=== PATIENT | female | born 1995 | race African-American/Black ===

== ENCOUNTER 2016-11-12 19:26 | Inpatient (IN) | payer MEDICAID ==
[~2016-11-12] VITALS: Ht 170.2 cm; Wt 58.5 kg
[~2016-11-12 19:26] MED LIST: FOLITAB45 OR; IRONTAB35 OR; LEVO750T3 PO
[2016-11-12] MEDS ORDERED: IBUPROFEN 600 MG TAB PO ONE ×2 (19:52→20:00)
[2016-11-12] MEDS ORDERED: HYDROmorphone HCL 2 MG/ML VL IV ONE (20:15)
[2016-11-12] MEDS ORDERED: FOLIC ACID 1 MG in D5W 5% 50 ML IV ONE (20:15)
[2016-11-12] MEDS ORDERED: ONDANSETRON HCL 4 MG/2 ML VIAL IV ONE (20:15)
[2016-11-12] MEDS ORDERED: SODIUM CHLORIDE 0.9% 2,000 ML IV ONE (20:15)
[2016-11-12 20:47] LABS: DEFINITIVE VIEW TRANSMISSION; Hematocrit 15.4 % (36.0-46.0); Mean Corpuscular Hemoglobin 40.3 pg (28.0-32.0); Mean Corpuscular Hgb Conc. 35.5 g/dL (32.0-36.0); Mean Corpuscular Volume 113.6 fL (80.0-100.0); Mean Platelet Volume 8.4 fL (7.4-10.4); Platelet Count (auto) 340 10^3/uL (140-450); Red Cell Distribution Width 17.3 % (11.6-16.0); SUSPECT VIEW TRANSMISSION
[2016-11-12 21:17] LABS: Hemoglobin 5.4 g/dL (12.2-16.2); White Blood Cell 46.9 10^3/uL (4.4-10.8)
[2016-11-12 21:22] LABS: Metamyelocytes % 0; Myelocytes % 0; Promyelocytes % 0; Reactive Lymphocytes 0
[2016-11-12] MEDS ORDERED: SODIUM CHLORIDE 0.9% 1,000 ML IV ONE ×2 (21:30→21:45)
[2016-11-12] MEDS ORDERED: VANCOMYCIN 1GM/250ML D5W 250 ML IV ONE ×2 (21:30→21:37)
[2016-11-12 21:33] LABS: Large Platelets FEW; Platelet Estimate Adequate
[2016-11-12 21:34] LABS: Albumin 3.4 g/dL (3.4-5.0); Calcium 8.1 mg/dL (8.5-10.1); Potassium 3.5 mmol/L (3.5-5.1)
[2016-11-12 21:35] LABS: Giant Platelets Few
[2016-11-12 21:36] LABS: BUN/Creatinine Ratio 31.6
[2016-11-12 21:38] LABS: Bilirubin, Total 3.4 mg/dL (0.2-1.0); Total Protein 7.2 g/dL (6.4-8.2); Toxic Granulation Slight
[2016-11-12 21:42] LABS: Urine Bilirubin Negative (Negative); Urine Blood TRACE /uL (Negative); Urine Color Yellow (Yellow); Urine Glucose Normal (Normal); Urine Ketone Negative (Negative); Urine Nitrite Negative (Negative); Urine RBC 2 /hpf (0 - 4); Urine Urobilinogen Normal (Negative)
[2016-11-12 21:44] LABS: Macrocytosis Marked
[2016-11-12 21:45] LABS: Lactic Acid w/Reflex 2.4 mmol/L (0.4-2.0)
[2016-11-12] MEDS ORDERED: cefTRIAXone 1GM/50ML D5W 50 ML IV ONE (21:45)
[2016-11-12 21:52] LABS: Platelet Clumps FEW
[2016-11-12 21:54] LABS: Sickle Cells MODERATE
[2016-11-12 21:55] LABS: REFLEX LACTIC ACID YES OR NO YES
[2016-11-12 21:56] LABS: Burr Cells FEW
[2016-11-12] MEDS: NOREPINEPHRINE BITARTRATE 250 ML IV SCH (22:03)
[2016-11-13] VITALS (81 sets, daily range): BP systolic 76–124; BP diastolic 29–74
[2016-11-13 00:16] LABS: Urine Bilirubin Negative (Negative); Urine Blood Negative /uL (Negative); Urine Color Yellow (Yellow); Urine Glucose Normal (Normal); Urine Ketone Negative (Negative); Urine Nitrite Negative (Negative); Urine RBC 1 /hpf (0 - 4); Urine Squamous Epithelial Cell FEW /hpf (<5); Urine Urobilinogen Normal (Negative)
[2016-11-13] MEDS ORDERED: NITROGLYCERIN 0.4 MG SL TAB SL PRN (02:15)
[2016-11-13] MEDS ORDERED: TEMAZEPAM 15 MG CAP PO PRN (02:15)
[2016-11-13] MEDS ORDERED: ONDANSETRON HCL 4 MG/2 ML VIAL IV PRN (02:15)
[2016-11-13] MEDS ORDERED: MORPHINE SULF INJ 2 MG/ML SYRINGE 1ML IV PRN (02:15)
[2016-11-13] MEDS: PIPERACILLIN-TAZOB 2.25GM 50 ML IV SCH ×4 (02:40→18:00)
[2016-11-13] MEDS: SODIUM CHLORIDE 0.9% 1,000 ML IV SCH ×3 (02:40→06:21)
[2016-11-13] MEDS: HYDROmorphone HCL 2 MG/ML VL IV PRN ×3 (03:26→18:14)
[2016-11-13] MEDS: NOREPINEPHRINE BITARTRATE 250 ML IV SCH (06:19)
[2016-11-13] MEDS: ACETAMINOPHEN 325 MG TAB PO PRN ×3 (06:20→21:44)
[2016-11-13] MEDS: ENOXAPARIN SOD 30 MG/0.3 ML SYRINGE SC SCH (09:41)
[2016-11-13] MEDS: FOLIC ACID 1 MG TAB PO SCH (09:41)
[2016-11-13] MEDS: FAMOTIDINE 20 MG TAB PO SCH ×2 (09:41→21:48)
[2016-11-13] MEDS ORDERED: VANCOMYCIN PER PHARMACY 0 MG IV SCH (10:00)
[2016-11-13] MEDS ORDERED: NITROGLYCERIN 2% OINT 1GM PKG TD ONE (10:45)
[2016-11-13 12:17] LABS: DEFINITIVE VIEW TRANSMISSION; Hematocrit 15.8 % (36.0-46.0); Mean Corpuscular Hemoglobin 37.5 pg (28.0-32.0); Mean Corpuscular Volume 104.1 fL (80.0-100.0); Mean Platelet Volume 8.6 fL (7.4-10.4); Platelet Count (auto) 311 10^3/uL (140-450); SUSPECT VIEW TRANSMISSION
[2016-11-13 12:20] LABS: Red Cell Distribution Width 22.4 % (11.6-16.0)
[2016-11-13 12:21] LABS: Hemoglobin 5.7 g/dL (12.2-16.2); White Blood Cell 39.9 10^3/uL (4.4-10.8)
[2016-11-13 12:22] LABS: Metamyelocytes % 0; Myelocytes % 0; Promyelocytes % 0; Reactive Lymphocytes 0
[2016-11-13 12:25] LABS: Albumin 2.9 g/dL (3.4-5.0); BUN/Creatinine Ratio 31.5; Bilirubin, Total 4.7 mg/dL (0.2-1.0); Calcium 8.2 mg/dL (8.5-10.1); Potassium 4.2 mmol/L (3.5-5.1); Total Protein 6.8 g/dL (6.4-8.2)
[2016-11-13 13:53] LABS: Platelet Estimate Adequate
[2016-11-13 13:54] LABS: Anisocytosis Moderate; Giant Platelets Few
[2016-11-13 13:55] LABS: Burr Cells MODERATE; Macrocytosis Moderate; Ovalocytes FEW; Sickle Cells MODERATE
[2016-11-13] MEDS: SODIUM BICARBONATE 50ML VIAL 50 ML in SOD CHL 0.45% WITH 20MEQ KCL 1,000 ML IV SCH ×2 (14:30→17:00)
[2016-11-13 18:15] LABS: DEFINITIVE VIEW TRANSMISSION; Hematocrit 18.4 % (36.0-46.0); Mean Corpuscular Hemoglobin 34.1 pg (28.0-32.0); Mean Corpuscular Hgb Conc. 34.8 g/dL (32.0-36.0); Mean Corpuscular Volume 98.2 fL (80.0-100.0); Mean Platelet Volume 8.6 fL (7.4-10.4); Platelet Count (auto) 311 10^3/uL (140-450); SUSPECT VIEW TRANSMISSION
[2016-11-13 18:20] LABS: Red Cell Distribution Width 24.3 % (11.6-16.0)
[2016-11-13 18:25] LABS: Hemoglobin 6.4 g/dL (12.2-16.2)
[2016-11-13 18:26] LABS: Metamyelocytes % 0; Myelocytes % 0; Promyelocytes % 0; Reactive Lymphocytes 0
[2016-11-13 18:53] LABS: Anisocytosis Moderate; Burr Cells FEW; Ovalocytes FEW; Platelet Estimate Adequate; Sickle Cells MODERATE
[2016-11-13] MEDS ORDERED: VANCOMYCIN 1GM/250ML D5W 250 ML IV SCH (21:00)
[2016-11-13] MEDS: HYDROcodone-ACET 5/325MG TAB PO PRN (21:15)
[2016-11-14] VITALS (87 sets, daily range): BP systolic 80–133; BP diastolic 38–85
[2016-11-14] MEDS: PIPERACILLIN-TAZOB 2.25GM 50 ML IV SCH ×5 (01:26→23:35)
[2016-11-14] MEDS: HYDROmorphone HCL 2 MG/ML VL IV PRN ×2 (02:46→17:26)
[2016-11-14] MEDS: SODIUM BICARBONATE 50ML VIAL 50 ML in SOD CHL 0.45% WITH 20MEQ KCL 1,000 ML IV SCH ×5 (03:30→18:59)
[2016-11-14 04:15] LABS: DEFINITIVE VIEW TRANSMISSION; Hematocrit 25.2 % (36.0-46.0); Hemoglobin 8.5 g/dL (12.2-16.2); Mean Corpuscular Hemoglobin 32.6 pg (28.0-32.0); Mean Corpuscular Hgb Conc. 33.8 g/dL (32.0-36.0); Mean Corpuscular Volume 96.5 fL (80.0-100.0); Mean Platelet Volume 8.7 fL (7.4-10.4); Platelet Count (auto) 313 10^3/uL (140-450); SUSPECT VIEW TRANSMISSION; White Blood Cell 29.6 10^3/uL (4.4-10.8)
[2016-11-14 04:16] LABS: Metamyelocytes % 0; Myelocytes % 0; Promyelocytes % 0; Reactive Lymphocytes 0; Red Cell Distribution Width 21.8 % (11.6-16.0)
[2016-11-14 04:41] LABS: BUN/Creatinine Ratio 18.1; Bilirubin, Total 4.7 mg/dL (0.2-1.0); Calcium 8.8 mg/dL (8.5-10.1); Magnesium 2.1 mg/dL (1.6-2.6); Phosphorus 3.3 mg/dL (2.5-4.90); Potassium 4.6 mmol/L (3.5-5.1); Total Protein 7.1 g/dL (6.4-8.2)
[2016-11-14 05:04] LABS: Anisocytosis Moderate; Ovalocytes FEW; Platelet Estimate Adequate
[2016-11-14 05:06] LABS: Burr Cells FEW; Sickle Cells FEW
[2016-11-14] MEDS: ACETAMINOPHEN 325 MG TAB PO PRN ×2 (05:30→17:26)
[2016-11-14] MEDS: FAMOTIDINE 20 MG TAB PO SCH ×2 (11:10→21:43)
[2016-11-14] MEDS: FOLIC ACID 1 MG TAB PO SCH (11:10)
[2016-11-14] MEDS: ENOXAPARIN SOD 30 MG/0.3 ML SYRINGE SC SCH (11:11)
[2016-11-14] MEDS: HYDROcodone-ACET 5/325MG TAB PO PRN ×2 (11:11→21:44)
[2016-11-14 14:05] LABS: BUN/Creatinine Ratio 13.9; Calcium 8.3 mg/dL (8.5-10.1); Potassium 4.1 mmol/L (3.5-5.1)
[2016-11-14] MEDS: NOREPINEPHRINE BITARTRATE 250 ML IV SCH (21:43)
[2016-11-15] VITALS (37 sets, daily range): BP systolic 90–144; BP diastolic 39–75
[2016-11-15] MEDS: SODIUM BICARBONATE 50ML VIAL 50 ML in SOD CHL 0.45% WITH 20MEQ KCL 1,000 ML IV SCH ×3 (00:30→10:47)
[2016-11-15] MEDS: HYDROmorphone HCL 2 MG/ML VL IV PRN ×2 (02:04→13:04)
[2016-11-15 03:44] LABS: DEFINITIVE VIEW TRANSMISSION; Hematocrit 21.4 % (36.0-46.0); Hemoglobin 7.1 g/dL (12.2-16.2); Mean Corpuscular Hemoglobin 32.1 pg (28.0-32.0); Mean Corpuscular Hgb Conc. 33.4 g/dL (32.0-36.0); Mean Corpuscular Volume 95.9 fL (80.0-100.0); Mean Platelet Volume 8.8 fL (7.4-10.4); Platelet Count (auto) 291 10^3/uL (140-450); SUSPECT VIEW TRANSMISSION; White Blood Cell 20.8 10^3/uL (4.4-10.8)
[2016-11-15 03:59] LABS: Albumin 2.5 g/dL (3.4-5.0); BUN/Creatinine Ratio 11.6; Calcium 8.3 mg/dL (8.5-10.1); Magnesium 1.8 mg/dL (1.6-2.6)
[2016-11-15 04:02] LABS: Bilirubin, Total 2.9 mg/dL (0.2-1.0); Total Protein 6.7 g/dL (6.4-8.2)
[2016-11-15 04:05] LABS: Red Cell Distribution Width 21.5 % (11.6-16.0)
[2016-11-15 04:06] LABS: Metamyelocytes % 0; Myelocytes % 0; Promyelocytes % 0; Reactive Lymphocytes 0
[2016-11-15 04:25] LABS: Hypersegmented Neutrophils Present; Platelet Estimate Adequate
[2016-11-15 04:26] LABS: Anisocytosis Moderate; Ovalocytes FEW
[2016-11-15 04:27] LABS: Sickle Cells FEW
[2016-11-15] MEDS: PIPERACILLIN-TAZOB 2.25GM 50 ML IV SCH ×2 (05:31→11:46)
[2016-11-15] MEDS: ACETAMINOPHEN 325 MG TAB PO PRN ×2 (06:46→22:14)
[2016-11-15] MEDS: FAMOTIDINE 20 MG TAB PO SCH ×2 (09:10→21:33)
[2016-11-15] MEDS: ENOXAPARIN SOD 30 MG/0.3 ML SYRINGE SC SCH (09:10)
[2016-11-15] MEDS: FOLIC ACID 1 MG TAB PO SCH (09:10)
[2016-11-15] MEDS ORDERED: cefTRIAXone 1GM/50ML D5W 50 ML IV ONE (16:00)
[2016-11-15] MEDS: PIPERACILLIN-TAZOB 3.375GM/D5W100ML IV SCH (17:31)
[2016-11-15] MEDS ORDERED: PIPERACILLIN-TAZOB 3.375GM/D5W100ML IV SCH (18:00)
[2016-11-16] VITALS (8 sets, daily range): BP systolic 94–118; BP diastolic 52–73
[2016-11-16] MEDS: PIPERACILLIN-TAZOB 3.375GM/D5W100ML IV SCH ×2 (00:05→06:26)
[2016-11-16 03:42] LABS: Basophils # (auto) 0 uL; Basophils % (auto) 0.3 % (0.0-2.0); DEFINITIVE VIEW TRANSMISSION; Eosinophils # (auto) 0.3 uL; Eosinophils % (auto) 2.2 % (0.0-7.0); Hematocrit 25.4 % (36.0-46.0); Hemoglobin 8.5 g/dL (12.2-16.2); Lymphocytes # (auto) 2.2 uL; Lymphocytes % (auto) 15.3 % (10.0-50.0); Mean Corpuscular Hgb Conc. 33.5 g/dL (32.0-36.0); Mean Corpuscular Volume 95.5 fL (80.0-100.0); Mean Platelet Volume 8.5 fL (7.4-10.4); Monocytes # (auto) 2.1 uL; Monocytes % (auto) 14.6 % (0.0-12.0); Neutrophils # (auto) 9.6 uL; Neutrophils % (auto) 67.6 % (37.0-80.0); Platelet Count (auto) 338 10^3/uL (140-450); White Blood Cell 14.1 10^3/uL (4.4-10.8)
[2016-11-16 03:52] LABS: Red Cell Distribution Width 20.3 % (11.6-16.0)
[2016-11-16 04:16] LABS: Albumin 2.6 g/dL (3.4-5.0); BUN/Creatinine Ratio 11.4; Bilirubin, Total 1.8 mg/dL (0.2-1.0); Calcium 8.4 mg/dL (8.5-10.1); Potassium 3.6 mmol/L (3.5-5.1); Total Protein 7.3 g/dL (6.4-8.2)
[2016-11-16 04:55] LABS: Anisocytosis Moderate
[2016-11-16 05:01] LABS: Platelet Estimate Adequate; Stomatocytes Few
[2016-11-16 05:02] LABS: Tear Drop Cells FEW
[2016-11-16 05:04] LABS: Sickle Cells RARE
[2016-11-16] MEDS: HYDROcodone-ACET 5/325MG TAB PO PRN (06:46)
[2016-11-16] MEDS ORDERED: cefTRIAXone 1GM/50ML D5W 50 ML IV SCH ×2 (09:00→11:00)
[2016-11-16] MEDS ORDERED: ENOXAPARIN SOD 40 MG/0.4 ML SYRINGE SC SCH (10:00)
[2016-11-16] MEDS ORDERED: CIPROFLOXACIN HCL 500 MG TAB PO SCH (11:15)
[2016-11-16] MEDS: FOLIC ACID 1 MG TAB PO SCH (11:19)
[2016-11-16] MEDS: FAMOTIDINE 20 MG TAB PO SCH (11:19)
[2016-11-16 13:38] LABS: DEFINITIVE VIEW TRANSMISSION; Hematocrit 26.8 % (36.0-46.0); Mean Corpuscular Hemoglobin 31.6 pg (28.0-32.0); Mean Corpuscular Hgb Conc. 33.5 g/dL (32.0-36.0); Mean Corpuscular Volume 94.4 fL (80.0-100.0); Mean Platelet Volume 8.5 fL (7.4-10.4); Platelet Count (auto) 367 10^3/uL (140-450); SUSPECT VIEW TRANSMISSION; White Blood Cell 14.5 10^3/uL (4.4-10.8)
[2016-11-16 13:43] LABS: Albumin 2.8 g/dL (3.4-5.0); Calcium 8.8 mg/dL (8.5-10.1); Potassium 3.6 mmol/L (3.5-5.1)
[2016-11-16 13:45] LABS: BUN/Creatinine Ratio 11.1
[2016-11-16 13:47] LABS: Bilirubin, Total 1.5 mg/dL (0.2-1.0); Total Protein 7.6 g/dL (6.4-8.2)
[2016-11-16 14:47] LABS: Metamyelocytes % 0; Myelocytes % 0; Promyelocytes % 0; Reactive Lymphocytes 0; Red Cell Distribution Width 20.8 % (11.6-16.0)
[2016-11-16 15:08] LABS: Anisocytosis Moderate; Platelet Estimate Adequate
[2016-11-16 15:09] LABS: Ovalocytes FEW; Tear Drop Cells FEW
== END 2016-11-16 15:38 | disposition home or self-care (01) | DRG 720 ==
LOC: ER 19:29 → TELE 19:30 → ICU WEST 11-13 03:40 → TELE-CENTR 11-16 06:11
PROVIDERS: ADMIT Nurse Practitioner; ATTEND Internal Medicine
PROC: 30233N1 Transfusion of Nonautologous Red Blood Cells into Peripheral Vein, Percutaneous Approach (ICD-10-PCS; principal; 2016-11-13)
DX: A41.9 Sepsis, unspecified organism (principal); N17.0 Acute kidney failure with tubular necrosis; R65.21 Severe sepsis with septic shock; D57.00 Hb-SS disease with crisis, unspecified; E87.2 Acidosis; E87.8 Other disorders of electrolyte and fluid balance, not elsewhere classified; D58.9 Hereditary hemolytic anemia, unspecified; N39.0 Urinary tract infection, site not specified; E86.0 Dehydration; B96.89 Other specified bacterial agents as the cause of diseases classified elsewhere; I10 Essential (primary) hypertension; E11.9 Type 2 diabetes mellitus without complications; Z90.49 Acquired absence of other specified parts of digestive tract; Z84.89 Family history of other specified conditions
CPT/HCPCS: 36415; 71010; 80048; 80053; 81001; 81025; 82570; 83540; 83550; 83605; 83615; 83735; 84100; 84300; 85007; 85025; 85027; 85045; 85652; 86850; 86900; 86901; 86922; 87040; 87077; 87081; 87086; 87186; 96365; 96367; 96375; 99291; G0434; J0696; J2405; J2543; J3490; J7060

== ENCOUNTER 2016-11-30 17:11 | Emergency (ER) | payer MEDICAID ==
[~2016-11-30] VITALS: Ht 170.2 cm; Wt 59.9 kg
[~2016-11-30 17:11] MED LIST changes: -LEVO750T3 PO
[2016-11-30 18:16] VITALS: BP 92/59
[2016-11-30] MEDS ORDERED: KETOROLAC TROMETH 60MG/2ML VIAL IM ONE (19:00)
[2016-11-30 19:17] LABS: DEFINITIVE VIEW TRANSMISSION; Hematocrit 22.9 % (36.0-46.0); Hemoglobin 7.6 g/dL (12.2-16.2); Mean Corpuscular Hemoglobin 30.8 pg (28.0-32.0); Mean Corpuscular Hgb Conc. 33.4 g/dL (32.0-36.0); Mean Corpuscular Volume 92.4 fL (80.0-100.0); Mean Platelet Volume 7.9 fL (7.4-10.4); Platelet Count (auto) 675 10^3/uL (140-450); Red Cell Distribution Width 18.8 % (11.6-16.0); SUSPECT VIEW TRANSMISSION
[2016-11-30 19:22] LABS: Metamyelocytes % 0; Myelocytes % 0; Promyelocytes % 0; Reactive Lymphocytes 0
[2016-11-30 20:16] LABS: Urine Bilirubin Negative (Negative); Urine Blood TRACE /uL (Negative); Urine Color Yellow (Yellow); Urine Glucose Normal (Normal); Urine Hyaline Cast FEW /lpf (0 - 2); Urine Ketone Negative (Negative); Urine Nitrite Negative (Negative); Urine RBC <1 /hpf (0 - 4); Urine Squamous Epithelial Cell FEW /hpf (<5); Urine Urobilinogen Normal (Negative); Urine pH 6.5 (5.0-8.0)
[2016-11-30 20:16] LABS: Bilirubin, Total 0.6 mg/dL (0.2-1.0); Calcium 8.8 mg/dL (8.5-10.1); Potassium 4.3 mmol/L (3.5-5.1); Total Protein 8.9 g/dL (6.4-8.2); Uric Acid 8.6 mg/dL (2.6-6.0)
[2016-11-30 20:43] LABS: Anisocytosis Slight; Platelet Estimate Increased
[2016-11-30 20:44] LABS: Hypochromia Slight
[2016-11-30 20:46] LABS: Platelet Clumps PRESENT
== END 2016-11-30 21:17 | disposition home or self-care (01) ==
LOC: ER 17:35
DX: M10.072 Idiopathic gout, left ankle and foot (principal); D57.1 Sickle-cell disease without crisis; Z90.49 Acquired absence of other specified parts of digestive tract; D64.9 Anemia, unspecified
CPT/HCPCS: 36415; 80053; 81001; 81025; 84550; 85007; 85027; 96372; 99284; J1885

== ENCOUNTER 2017-05-15 08:19 | Emergency (ER) | payer MEDICAID ==
[~2017-05-15] VITALS: Ht 170.2 cm; Wt 61.7 kg
[2017-05-15] MEDS ORDERED: ACETAMINOPHEN 325 MG TAB PO ONE (08:45)
[2017-05-15] MEDS ORDERED: HYDROcodone-ACET 10/325MG TAB PO ONE (09:15)
[2017-05-15 09:21] VITALS: BP 94/41
== END 2017-05-15 09:43 | disposition home or self-care (01) ==
LOC: ER 08:19 → EDUNIT# 08:19 → ER 09:43
DX: D57.1 Sickle-cell disease without crisis (principal); J02.9 Acute pharyngitis, unspecified

== ENCOUNTER 2020-10-13 11:53 | Inpatient (IN) | payer MEDICAID ==
[~2020-10-13] VITALS: Ht 170.2 cm; Wt 66.2 kg
[~2020-10-13 11:53] MED LIST changes: -IRONTAB35 OR
[2020-10-13] MEDS ORDERED: HYDROmorphone HCL 2 MG/ML VL IV ONE (12:15)
[2020-10-13] MEDS ORDERED: SODIUM CHLORIDE 0.9% 1,000 ML IV ONE (12:15)
[2020-10-13] MEDS ORDERED: ONDANSETRON HCL 4 MG/2 ML VIAL IV ONE (12:15)
[2020-10-13] MEDS ORDERED: AZITHROMYCIN 500MG/ 250ML 250 ML IV ONE (12:45)
[2020-10-13 12:53] LABS: Eosinophils # (auto) 0.3 10 ^3/uL (0-0.8); Nucleated Red Blood Cells % 2.4 %
[2020-10-13 12:56] LABS: Basophils # (auto) 0.2 10 ^3/uL (0-0.2); Basophils % (auto) 1.5 % (0.0-2.0); Hematocrit 18.5 % (36.0-46.0); Hemoglobin 7.3 g/dL (12.2-16.2); Lymphocytes # (auto) 2.6 10 ^3/uL (0.4-5.4); Lymphocytes % (auto) 18.1 % (10.0-50.0); Mean Corpuscular Hemoglobin 42.3 pg (28.0-32.0); Mean Corpuscular Volume 107.6 fL (80.0-100.0); Monocytes # (auto) 1.8 10 ^3/uL (0-1.3); Monocytes % (auto) 12.8 % (0.0-12.0); Neutrophils # (auto) 9.4 10 ^3/uL (1.6-8.6); Neutrophils % (auto) 65.6 % (37.0-80.0); Platelet Count (auto) 342 10^3/uL (140-450); Red Blood Cells 1.72 10^6/uL (4.0-5.20); White Blood Cell 14.4 10^3/uL (4.4-10.8)
[2020-10-13] MEDS ORDERED: ZINC SULFATE 220mg CAP or TAB PO ONE (13:00)
[2020-10-13] MEDS ORDERED: CHOLECALCIFEROL (VITD3) 2,000 UNIT CAP/TAB PO ONE (13:00)
[2020-10-13] MEDS ORDERED: ASCORBIC ACID 500 MG TAB PO ONE (13:00)
[2020-10-13 13:29] LABS: Albumin 4.1 g/dL (3.4-5.0); Calcium 8.7 mg/dL (8.5-10.1)
[2020-10-13 13:29] LABS: Urine Bacteria FEW /hpf (None Seen); Urine Blood Negative /uL (Negative); Urine Specific Gravity 1.012 (1.001-1.035); Urine WBC 1 /hpf (0 - 5)
[2020-10-13 13:32] LABS: Mean Corpuscular Hgb Conc. 39.3 g/dL (32.0-36.0); Red Cell Distribution Width 22.1 % (11.8-14.3)
[2020-10-13 13:33] LABS: BUN/Creatinine Ratio 23.6; Bilirubin, Total 4.6 mg/dL (0.2-1.0)
[2020-10-13] MEDS ORDERED: methylPREDNISolone SOD SUCC 125 MG/2 ML VL IV ONE (15:00)
[2020-10-13] MEDS ORDERED: ONDANSETRON HCL 4 MG/2 ML VIAL IV PRN (16:15)
[2020-10-13] MEDS: SODIUM CHLORIDE 0.9% 1,000 ML IV SCH (17:33)
[2020-10-13] MEDS: HYDROmorphone HCL 2 MG/ML VL IV PRN ×2 (20:13→23:13)
[2020-10-14] VITALS (9 sets, daily range): BP systolic 84–111; BP diastolic 36–69
[2020-10-14] MEDS: SODIUM CHLORIDE 0.9% 1,000 ML IV SCH ×3 (02:15→22:22)
[2020-10-14] MEDS: HYDROmorphone HCL 2 MG/ML VL IV PRN ×2 (02:50→20:35)
[2020-10-14] MEDS ORDERED: ASCO500T11 PO (03:46)
[2020-10-14] MEDS ORDERED: IBUP600T27 PO (03:46)
[2020-10-14 07:05] LABS: BUN/Creatinine Ratio 23.6; Calcium 8.6 mg/dL (8.5-10.1)
[2020-10-14 07:10] LABS: Basophils # (auto) 0.2 10 ^3/uL (0-0.2); Eosinophils # (auto) 0 10 ^3/uL (0-0.8); Eosinophils % (auto) 0.1 % (0.0-7.0); White Blood Cell 11.8 10^3/uL (4.4-10.8)
[2020-10-14 07:12] LABS: Basophils % (auto) 1.4 % (0.0-2.0); Hematocrit 18.5 % (36.0-46.0); Lymphocytes # (auto) 1.7 10 ^3/uL (0.4-5.4); Lymphocytes % (auto) 14.3 % (10.0-50.0); Mean Corpuscular Hemoglobin 40.5 pg (28.0-32.0); Mean Corpuscular Hgb Conc. 36.7 g/dL (32.0-36.0); Mean Corpuscular Volume 110.2 fL (80.0-100.0); Monocytes # (auto) 1.7 10 ^3/uL (0-1.3); Monocytes % (auto) 14.5 % (0.0-12.0); Neutrophils # (auto) 8.2 10 ^3/uL (1.6-8.6); Neutrophils % (auto) 69.7 % (37.0-80.0); Nucleated Red Blood Cells % 2.7 %; Platelet Count (auto) 325 10^3/uL (140-450); Red Blood Cells 1.68 10^6/uL (4.0-5.20); Red Cell Distribution Width 18.9 % (11.8-14.3)
[2020-10-14 07:17] LABS: Potassium 5.6 mmol/L (3.5-5.1)
[2020-10-14 07:39] LABS: Hemoglobin 6.8 g/dL (12.2-16.2)
[2020-10-14] MEDS ORDERED: SODIUM ZIRCONIUM CYCL 10 GM PAK PO ONE (07:45)
[2020-10-14] MEDS ORDERED: InsuLIN REG 1unit/0.01ml Soln (100units/ml) IV ONE (08:45)
[2020-10-14] MEDS ORDERED: DEXTROSE (50%) 50ML SYRG IV ONE (08:45)
[2020-10-14] MEDS: MULTIPLE VITAMIN TAB PO SCH (09:04)
[2020-10-14] MEDS: PANTOPRAZOLE 40 MG TAB PO SCH (09:04)
[2020-10-14] MEDS: FOLIC ACID 1 MG TAB PO SCH (09:05)
[2020-10-14] MEDS ORDERED: ASCORBIC ACID 500 MG TAB PO ONE (15:30)
[2020-10-14] MEDS ORDERED: ZINC SULFATE 220mg CAP or TAB PO ONE (15:30)
[2020-10-14] MEDS: ASCORBIC ACID 500 MG TAB PO SCH (20:35)
[2020-10-15] VITALS (8 sets, daily range): BP systolic 91–106; BP diastolic 47–62
[2020-10-15] MEDS: HYDROmorphone HCL 2 MG/ML VL IV PRN ×2 (03:14→19:29)
[2020-10-15 07:48] LABS: Basophils # (auto) 0.1 10 ^3/uL (0-0.2); Basophils % (auto) 0.7 % (0.0-2.0); Eosinophils # (auto) 0.2 10 ^3/uL (0-0.8); Eosinophils % (auto) 1.4 % (0.0-7.0); Hematocrit 18.9 % (36.0-46.0); Lymphocytes # (auto) 4.3 10 ^3/uL (0.4-5.4); Lymphocytes % (auto) 35.6 % (10.0-50.0); Mean Corpuscular Hemoglobin 38.8 pg (28.0-32.0); Mean Corpuscular Hgb Conc. 36.3 g/dL (32.0-36.0); Mean Corpuscular Volume 106.9 fL (80.0-100.0); Monocytes # (auto) 1.3 10 ^3/uL (0-1.3); Monocytes % (auto) 10.4 % (0.0-12.0); Neutrophils # (auto) 6.3 10 ^3/uL (1.6-8.6); Neutrophils % (auto) 51.9 % (37.0-80.0); Platelet Count (auto) 299 10^3/uL (140-450); Red Blood Cells 1.77 10^6/uL (4.0-5.20); White Blood Cell 12.2 10^3/uL (4.4-10.8)
[2020-10-15 07:49] LABS: BUN/Creatinine Ratio 27.6; Potassium 4.4 mmol/L (3.5-5.1)
[2020-10-15 07:50] LABS: Magnesium 1.8 mg/dL (1.6-2.6)
[2020-10-15 07:53] LABS: Hemoglobin 6.9 g/dL (12.2-16.2); Red Cell Distribution Width 21.6 % (11.8-14.3)
[2020-10-15] MEDS: SODIUM CHLORIDE 0.9% 1,000 ML IV SCH ×2 (08:33→14:38)
[2020-10-15] MEDS: FOLIC ACID 1 MG TAB PO SCH (09:30)
[2020-10-15] MEDS: MULTIPLE VITAMIN TAB PO SCH (09:30)
[2020-10-15] MEDS: PANTOPRAZOLE 40 MG TAB PO SCH (09:30)
[2020-10-15] MEDS: ASCORBIC ACID 500 MG TAB PO SCH ×2 (09:31→21:01)
[2020-10-15] MEDS ORDERED: ZINC SULFATE 220mg CAP or TAB PO SCH (10:00)
[2020-10-15] MEDS ORDERED: ERGOCALCIFEROL 50,000 UNIT(1.25MG) CAP PO SCH (14:00)
[2020-10-15] MEDS ORDERED: MAGNESIUM SULFATE 1GM/100ML 100 ML IV ONE (14:00)
[2020-10-16] MEDS: HYDROmorphone HCL 2 MG/ML VL IV PRN (02:48)
[2020-10-16] MEDS: SODIUM CHLORIDE 0.9% 1,000 ML IV SCH (04:18)
[2020-10-16 05:00] VITALS: BP 95/53
[2020-10-16 06:29] LABS: Magnesium 2.1 mg/dL (1.6-2.6); Potassium 4.2 mmol/L (3.5-5.1)
[2020-10-16 07:11] LABS: Basophils # (auto) 0.1 10 ^3/uL (0-0.2); Basophils % (auto) 0.9 % (0.0-2.0)
[2020-10-16 07:12] LABS: Eosinophils # (auto) 0.3 10 ^3/uL (0-0.8); Eosinophils % (auto) 3.4 % (0.0-7.0); Hematocrit 21.2 % (36.0-46.0); Hemoglobin 7.9 g/dL (12.2-16.2); Lymphocytes # (auto) 3.6 10 ^3/uL (0.4-5.4); Lymphocytes % (auto) 36.2 % (10.0-50.0); Mean Corpuscular Hemoglobin 37.7 pg (28.0-32.0); Mean Corpuscular Hgb Conc. 37.4 g/dL (32.0-36.0); Mean Corpuscular Volume 100.7 fL (80.0-100.0); Monocytes # (auto) 1.1 10 ^3/uL (0-1.3); Monocytes % (auto) 10.6 % (0.0-12.0); Neutrophils # (auto) 4.9 10 ^3/uL (1.6-8.6); Neutrophils % (auto) 48.9 % (37.0-80.0); Platelet Count (auto) 297 10^3/uL (140-450)
[2020-10-16 07:15] LABS: Red Cell Distribution Width 23.9 % (11.8-14.3)
[2020-10-16 09:00] VITALS: BP 102/60
[2020-10-16] MEDS ORDERED: CHOLECALCIFEROL (VITD3) 2,000 UNIT CAP/TAB PO SCH (10:00)
[2020-10-16 13:00] VITALS: BP 127/82
[2020-10-16] MEDS ORDERED: CHOL1CAP47 PO (13:02)
[2020-10-16 15:11] VITALS: BP 92/50
== END 2020-10-16 16:30 | disposition home or self-care (01) | DRG 662 ==
LOC: ER 11:53 → OVERFLOW 16:19 → EAST 10-14 02:28
PROVIDERS: ADMIT Nurse Practitioner Acute Care; ATTEND Internal Medicine
PROC: 30233N1 Transfusion of Nonautologous Red Blood Cells into Peripheral Vein, Percutaneous Approach (ICD-10-PCS; principal; 2020-10-14)
DX: D57.00 Hb-SS disease with crisis, unspecified (principal); U07.1 COVID-19; J96.01 Acute respiratory failure with hypoxia; D53.9 Nutritional anemia, unspecified; E55.9 Vitamin D deficiency, unspecified; D72.828 Other elevated white blood cell count; Z87.442 Personal history of urinary calculi; E87.5 Hyperkalemia; R65.10 Systemic inflammatory response syndrome (SIRS) of non-infectious origin without acute organ dysfunction; M79.671 Pain in right foot
CPT/HCPCS: 36415; 71045; 80048; 80053; 81001; 82306; 82728; 83605; 83735; 84132; 84702; 85025; 85045; 85652; 86141; 86850; 86900; 86901; 86920; 87040; 87086; 87426; 96361; 96365; 96366; 96375; G0378; J1815; J2405

== ENCOUNTER 2021-03-31 11:30 | Inpatient (IN) | payer MEDICAID ==
[~2021-03-31] VITALS: Ht 170.2 cm; Wt 62.6 kg
[~2021-03-31 11:30] MED LIST changes: +ASCO500T11 PO; +CHOL1CAP47 PO; +IBUP600T27 PO
[2021-03-31] MEDS ORDERED: HYDROcodone-ACET 5/325MG TAB PO ONE (14:15)
[2021-03-31 15:43] LABS: Hematocrit 21.6 % (36.0-46.0); Hemoglobin 7.9 g/dL (12.2-16.2); Mean Corpuscular Hemoglobin 40.8 pg (28.0-32.0); Mean Corpuscular Volume 111.6 fL (80.0-100.0); Red Blood Cells 1.94 10^6/uL (4.0-5.20); White Blood Cell 10.3 10^3/uL (4.4-10.8)
[2021-03-31 15:44] LABS: Mean Corpuscular Hgb Conc. 36.6 g/dL (32.0-36.0); Red Cell Distribution Width 23.2 % (11.8-14.3)
[2021-03-31 15:49] LABS: Band Neutrophils % (manual) 0; Basophils % (manual) 0 (0.0-2.0); Blast Cells 0; Metamyelocytes % 0; Myelocytes % 0; Promyelocytes % 0; Reactive Lymphocytes 0
[2021-03-31] MEDS ORDERED: ONDANSETRON HCL 4 MG/2 ML VIAL IV ONE (16:00)
[2021-03-31] MEDS ORDERED: MORPHINE SULFATE INJECTION 2 MG/ML SYRG IV ONE (16:00)
[2021-03-31] MEDS ORDERED: diphenhdrAMINE HCL 50 MG/1 ML VL IV ONE (16:00)
[2021-03-31] MEDS ORDERED: SODIUM CHLORIDE 0.9% 1,000 ML IV ONE ×2 (16:00→17:45)
[2021-03-31 16:56] LABS: Eosinophils % (manual) 4 (0-7); Lymphocytes % (manual) 27 (10.0-50.0); Monocytes % (manual) 12 (0-12)
[2021-03-31] MEDS ORDERED: FOLIC ACID 1 MG TAB PO ONE (18:00)
[2021-03-31] MEDS ORDERED: MULTIPLE VITAMIN TAB PO ONE (18:00)
[2021-03-31 18:52] LABS: Albumin 4.2 g/dL (3.4-5.0); Calcium 8.8 mg/dL (8.5-10.1); Potassium 4.7 mmol/L (3.5-5.1)
[2021-03-31 18:57] LABS: BUN/Creatinine Ratio 15.5; Bilirubin, Total 3.4 mg/dL (0.2-1.0); Total Protein 7.8 g/dL (6.4-8.2)
[2021-03-31] MEDS ORDERED: MORPHINE SULFATE INJECTION 2 MG/ML SYRG IV PRN (20:45)
[2021-03-31] MEDS ORDERED: ACETAMINOPHEN 325 MG TAB PO PRN (20:45)
[2021-03-31] MEDS: SODIUM CHLORIDE 0.9% 1,000 ML IV SCH (20:45)
[2021-03-31] MEDS ORDERED: ONDANSETRON HCL 4 MG/2 ML VIAL IV PRN (20:45)
[2021-03-31] MEDS ORDERED: HYDROcodone-ACET 5/325MG TAB PO PRN (20:45)
[2021-03-31] MEDS ORDERED: TEMAZEPAM 15 MG CAP PO PRN (22:00)
[2021-04-01 04:38] LABS: BUN/Creatinine Ratio 14.5; Calcium 8.1 mg/dL (8.5-10.1); Potassium 4.9 mmol/L (3.5-5.1)
[2021-04-01 07:25] LABS: Basophils # (auto) 0.2 10 ^3/uL (0-0.2); Eosinophils # (auto) 0.3 10 ^3/uL (0-0.8); Monocytes # (auto) 1.3 10 ^3/uL (0-1.3); Monocytes % (auto) 12.5 % (0.0-12.0); White Blood Cell 10.3 10^3/uL (4.4-10.8)
[2021-04-01 07:29] LABS: Basophils % (auto) 1.7 % (0.0-2.0); Eosinophils % (auto) 2.9 % (0.0-7.0); Hematocrit 16.5 % (36.0-46.0); Lymphocytes # (auto) 3.2 10 ^3/uL (0.4-5.4); Lymphocytes % (auto) 30.6 % (10.0-50.0); Mean Corpuscular Hemoglobin 42.7 pg (28.0-32.0); Neutrophils # (auto) 5.4 10 ^3/uL (1.6-8.6); Neutrophils % (auto) 52.3 % (37.0-80.0); Nucleated Red Blood Cells % 1.5 %; Red Blood Cells 1.53 10^6/uL (4.0-5.20)
[2021-04-01 07:40] LABS: Mean Corpuscular Hgb Conc. 39.5 g/dL (32.0-36.0)
[2021-04-01 08:14] LABS: Hemoglobin 6.5 g/dL (12.2-16.2)
[2021-04-01] MEDS ORDERED: MORPHINE SULFATE INJECTION 2 MG/ML SYRG IV PRN (09:15)
[2021-04-01] MEDS ORDERED: ASCORBIC ACID 500 MG TAB PO SCH (10:00)
[2021-04-01] MEDS ORDERED: PANTOPRAZOLE 40 MG TAB PO SCH (10:00)
[2021-04-01] MEDS ORDERED: FOLIC ACID 1 MG TAB PO SCH (10:00)
[2021-04-01] MEDS: SODIUM CHLORIDE 0.9% 1,000 ML IV SCH (10:11)
[2021-04-01 10:14] LABS: Hematocrit 17.6 % (36.0-46.0)
[2021-04-01 10:23] LABS: Hemoglobin 6.8 g/dL (12.2-16.2)
[2021-04-01 11:09] VITALS: BP 95/59
[2021-04-01] MEDS ORDERED: HYDROmorphone HCL 2 MG/ML VL IV PRN (14:00)
[2021-04-01] MEDS ORDERED: D5W/SOD CHLO 0.9% 1,000 ML IV SCH (14:00)
[2021-04-02] MEDS ORDERED: FOLIC ACID 1 MG TAB PO SCH (10:00)
== END 2021-04-01 13:56 | disposition left against medical advice (07) | DRG 662 ==
LOC: ER 11:30 → OVERFLOW 20:43
PROVIDERS: ADMIT Nurse Practitioner; ATTEND Internal Medicine
DX: D57.00 Hb-SS disease with crisis, unspecified (principal); G89.4 Chronic pain syndrome; Z20.822 Contact with and (suspected) exposure to COVID-19; Z53.29 Procedure and treatment not carried out because of patient's decision for other reasons; Z83.2 Family history of diseases of the blood and blood-forming organs and certain disorders involving the immune mechanism; Z87.442 Personal history of urinary calculi; Z90.49 Acquired absence of other specified parts of digestive tract
CPT/HCPCS: 36415; 80048; 80053; 85007; 85014; 85018; 85025; 85027; 85045; 85652; 86850; 86900; 86901; 86920; 87426; 96361; 96374; 96375; G0378; J2405

== ENCOUNTER 2023-12-11 05:17 | Inpatient (IN) | payer MEDICAID ==
[~2023-12-11] VITALS: Ht 170.2 cm; Wt 62.6 kg
[~2023-12-11 05:17] MED LIST changes: +HYDR-4833 PO; +IBUP-1454 PO; -IBUP600T27 PO
[2023-12-11] MEDS: SODIUM CHLORIDE 0.9% 1,000 ML IV ONE ×2 (06:30→06:53)
[2023-12-11 07:02] LABS: Basophils # (auto) 0.2 10 ^3/uL (0-0.2); Eosinophils # (auto) 0.4 10 ^3/uL (0-0.8); Lymphocytes # (auto) 2.6 10 ^3/uL (0.4-5.4); Neutrophils # (auto) 8.8 10 ^3/uL (1.6-8.6)
[2023-12-11 07:04] LABS: Basophils % (auto) 1.1 % (0.0-2.0); Eosinophils % (auto) 2.9 % (0.0-7.0); Hematocrit 19.8 % (36.0-46.0); Lymphocytes % (auto) 18.5 % (10.0-50.0); Mean Corpuscular Hemoglobin 39.4 pg (28.0-32.0); Mean Corpuscular Hgb Conc. 35.5 g/dL (32.0-36.0); Mean Corpuscular Volume 110.8 fL (80.0-100.0); Monocytes % (auto) 14.3 % (0.0-12.0); Neutrophils % (auto) 63.2 % (37.0-80.0); Nucleated Red Blood Cells % 0.9 %; Red Blood Cells 1.78 10^6/uL (4.0-5.20)
[2023-12-11] MEDS: ONDANSETRON HCL 4 MG/2 ML VIAL IV ONE (07:08)
[2023-12-11] MEDS: MORPHINE SULFATE 4 MG/ML SYR/VIAL IV ONE (07:09)
[2023-12-11 07:24] LABS: Chloride 109 mmol/L (98-107); Potassium 4.2 mmol/L (3.5-5.1); Sodium 139 mmol/L (136-145)
[2023-12-11 07:25] LABS: Anion Gap 9 (5-15); Calcium 9.4 mg/dL (8.5-10.1); Carbon Dioxide 21 mmol/L (20-30)
[2023-12-11 07:30] LABS: BUN/Creatinine Ratio 16.5 (10.0-20.0); Blood Urea Nitrogen 13 mg/dL (9-23); Glucose 99 mg/dL (74-106)
[2023-12-11 07:34] VITALS: PULSE 98; RESP 18; O2SAT 98
[2023-12-11 07:34] LABS: Red Cell Distribution Width 22.3 % (11.8-14.3)
[2023-12-11] MEDS: ONDANSETRON HCL 4 MG/2 ML VIAL IV PRN (07:55)
[2023-12-11] MEDS: diphenhdrAMINE HCL 50 MG/1 ML VL IV PRN (07:56)
[2023-12-11] MEDS: HYDROmorphone HCL 2 MG/ML VL/or syr IV PRN (07:56)
[2023-12-11 08:21] LABS: Macrocytosis Moderate; Platelet Estimate Adequate
[2023-12-11 08:23] LABS: Anisocytosis Slight; Sickle Cells MANY
[2023-12-11] MEDS ORDERED: DOCUSATE SOD 100 MG CAP PO PRN (09:15)
[2023-12-11] MEDS ORDERED: MORPHINE SULFATE INJ 2 MG/ml SYRG IV PRN ×2 (09:15)
[2023-12-11] MEDS ORDERED: HYDROcodone-ACET 5/325MG TAB PO PRN (09:15)
[2023-12-11] MEDS ORDERED: ONDANSETRON HCL 4 MG/2 ML VIAL IV PRN (09:15)
[2023-12-11] MEDS ORDERED: NITROGLYCERIN 0.4 MG SL TAB SL PRN (09:15)
[2023-12-11] MEDS: SODIUM CHLORIDE 0.9% 1,000 ML IV SCH (11:01)
[2023-12-11 12:38] LABS: Urine Bacteria FEW /hpf (None Seen); Urine Blood Negative /uL (Negative); Urine Clarity Turbid (Clear); Urine Color Light-Orange (Yellow); Urine Protein, UAD Negative (Negative); Urine Specific Gravity 1.009 (1.001-1.035); Urine Urobilinogen Normal (Negative); Urine WBC 45 /hpf (0 - 5); Urine pH 5.5 (5.0-9.0)
[2023-12-11 16:15] VITALS: BP 115/49; PULSE 66; RESP 15; TEMP 97.1
[2023-12-11 16:30] VITALS: BP 115/49; PULSE 75; RESP 16; TEMP 97.8
[2023-12-11 18:03] VITALS: BP 106/68; PULSE 65; RESP 14; TEMP 98.4; TEMP 98.5; O2SAT 96
[2023-12-11] MEDS ORDERED: PRE1T PO (18:31)
[2023-12-11 19:05] VITALS: BP 111/60; PULSE 73; RESP 16; TEMP 98.4
[2023-12-11 20:11] VITALS: PULSE 74; RESP 16; O2SAT 98
[2023-12-11] MEDS: ACETAMINOPHEN 325 MG TAB PO PRN (23:37)
[2023-12-12 05:03] LABS: Basophils # (auto) 0.1 10 ^3/uL (0-0.2); Basophils % (auto) 0.7 % (0.0-2.0); Eosinophils # (auto) 0.4 10 ^3/uL (0-0.8); Eosinophils % (auto) 2.8 % (0.0-7.0); Hematocrit 22.3 % (36.0-46.0); Lymphocytes # (auto) 2.4 10 ^3/uL (0.4-5.4); Lymphocytes % (auto) 17.6 % (10.0-50.0); Mean Corpuscular Hemoglobin 38.8 pg (28.0-32.0); Mean Corpuscular Hgb Conc. 35.6 g/dL (32.0-36.0); Mean Corpuscular Volume 108.9 fL (80.0-100.0); Monocytes # (auto) 1.4 10 ^3/uL (0-1.3); Monocytes % (auto) 10.6 % (0.0-12.0); Neutrophils # (auto) 9.2 10 ^3/uL (1.6-8.6); Neutrophils % (auto) 68.3 % (37.0-80.0); Nucleated Red Blood Cells % 1.1 %; Red Blood Cells 2.05 10^6/uL (4.0-5.20); White Blood Cell 13.5 10^3/uL (4.4-10.8)
[2023-12-12 05:04] LABS: Red Cell Distribution Width 21.3 % (11.8-14.3)
[2023-12-12 05:23] LABS: Alanine Aminotransferase 26 U/L (7-40); Albumin 3.8 g/dL (3.2-4.8); Alkaline Phosphatase 70 U/L (46-116); Anion Gap 6 (5-15); Aspartate Aminotransferase 48 U/L (13-40); BUN/Creatinine Ratio 14.5 (10.0-20.0); Bilirubin, Total 3.8 mg/dL (0.2-1.0); Blood Urea Nitrogen 10 mg/dL (9-23); Calcium 8.9 mg/dL (8.7-10.4); Carbon Dioxide 24 mmol/L (20-30); Chloride 108 mmol/L (98-107); Glucose 96 mg/dL (74-106); Potassium 4.3 mmol/L (3.5-5.1); Sodium 138 mmol/L (136-145); Total Protein 6.6 g/dL (5.7-8.2)
[2023-12-12 06:04] LABS: Anisocytosis Moderate; Macrocytosis Moderate; Platelet Estimate Adequate; Sickle Cells MODERATE; Target Cell MODERATE
[2023-12-12 08:00] VITALS: PULSE 67; RESP 16; O2SAT 99
[2023-12-12 09:03] VITALS: BP 99/48; PULSE 67; RESP 16; TEMP 98.4; O2SAT 99
[2023-12-12] MEDS: FOLIC ACID 1 MG TAB PO SCH (10:26)
[2023-12-12 13:02] VITALS: BP 93/46; PULSE 70; RESP 20; TEMP 97.6; O2SAT 91
[2023-12-12] MEDS: cefTRIAXone 1GM/50ML D5W 50 ML IV ONE (13:04)
[2023-12-12 17:11] VITALS: BP 95/48; PULSE 89; RESP 17; TEMP 97.8; O2SAT 100
[2023-12-12] MEDS: OXYCODONE W/ ACETAMINOPHEN 5/325MG TABLET PO PRN (18:47)
[2023-12-12 20:00] VITALS: BP 133/72; PULSE 74; PULSE 81; RESP 16; TEMP 36.6; O2SAT 98
[2023-12-12 21:00] VITALS: BP 107/64; PULSE 85; RESP 17; TEMP 98.2; O2SAT 97
[2023-12-12] MEDS: HYDROmorphone HCL 2 MG/ML VL/or syr IV PRN (21:04)
[2023-12-13 01:00] VITALS: BP 87/48; PULSE 68; RESP 17; TEMP 98.6; O2SAT 90
[2023-12-13 05:01] VITALS: BP 102/65; PULSE 68; RESP 16; TEMP 97.6; O2SAT 93
[2023-12-13 05:48] LABS: Anion Gap 7 (5-15); Carbon Dioxide 24 mmol/L (20-30); Chloride 106 mmol/L (98-107); Potassium 4.1 mmol/L (3.5-5.1); Sodium 137 mmol/L (136-145)
[2023-12-13 05:50] LABS: Calcium 8.9 mg/dL (8.7-10.4)
[2023-12-13 05:54] LABS: BUN/Creatinine Ratio 18.5 (10.0-20.0); Blood Urea Nitrogen 10 mg/dL (9-23); Glucose 94 mg/dL (74-106)
[2023-12-13 05:58] LABS: Basophils # (auto) 0 10 ^3/uL (0-0.2); Basophils % (auto) 0.4 % (0.0-2.0); Eosinophils # (auto) 0.4 10 ^3/uL (0-0.8)
[2023-12-13 06:00] LABS: Eosinophils % (auto) 3.3 % (0.0-7.0); Hematocrit 20.4 % (36.0-46.0); Hemoglobin 7.4 g/dL (12.2-16.2); Lymphocytes # (auto) 1.6 10 ^3/uL (0.4-5.4); Lymphocytes % (auto) 14.4 % (10.0-50.0); Mean Corpuscular Hemoglobin 38.6 pg (28.0-32.0); Mean Corpuscular Hgb Conc. 36.3 g/dL (32.0-36.0); Mean Corpuscular Volume 106.2 fL (80.0-100.0); Monocytes # (auto) 1.5 10 ^3/uL (0-1.3); Monocytes % (auto) 13.9 % (0.0-12.0); Neutrophils # (auto) 7.4 10 ^3/uL (1.6-8.6); Nucleated Red Blood Cells % 0.7 %; Red Blood Cells 1.92 10^6/uL (4.0-5.20); White Blood Cell 10.8 10^3/uL (4.4-10.8)
[2023-12-13 06:18] LABS: Red Cell Distribution Width 20.7 % (11.8-14.3)
[2023-12-13 08:00] VITALS: PULSE 66; RESP 18; O2SAT 96
[2023-12-13 08:02] LABS: Anisocytosis Moderate; Macrocytosis Moderate; Platelet Estimate Adequate; Sickle Cells MODERATE
[2023-12-13 08:03] LABS: Ovalocytes MODERATE; Stomatocytes Mode; Target Cell MODERATE
[2023-12-13] MEDS ORDERED: cefTRIAXone 1GM/50ML D5W 50 ML IV SCH (09:00)
== END 2023-12-13 09:30 | disposition left against medical advice (07) | DRG 662 ==
LOC: ER 05:17 → EDBD 05:17 → OVERFLOW 09:13 → WEST WING 17:57
PROVIDERS: ADMIT Nurse Practitioner Family; ATTEND Nurse Practitioner Acute Care
PROC: 30233N1 Transfusion of Nonautologous Red Blood Cells into Peripheral Vein, Percutaneous Approach (ICD-10-PCS; principal; 2023-12-11)
DX: D57.00 Hb-SS disease with crisis, unspecified (principal); D72.829 Elevated white blood cell count, unspecified; D75.89 Other specified diseases of blood and blood-forming organs; N39.0 Urinary tract infection, site not specified; Z53.29 Procedure and treatment not carried out because of patient's decision for other reasons; Z84.81 Family history of carrier of genetic disease; Z87.442 Personal history of urinary calculi; Z90.49 Acquired absence of other specified parts of digestive tract; Z83.2 Family history of diseases of the blood and blood-forming organs and certain disorders involving the immune mechanism
CPT/HCPCS: 36415; 80048; 80053; 81001; 85025; 86850; 86900; 86901; 86920; 96361; 96374; 96375; G0378; J2405